=== PATIENT | male | born 1980 | race Two or more races ===

== ENCOUNTER 2016-07-15 21:13 | Emergency (ER) | payer MEDICAID ==
[~2016-07-15] VITALS: Ht 170.2 cm; Wt 74.8 kg
[2016-07-15] MEDS ORDERED: ONDANSETRON HCL 4 MG/2 ML VIAL ONE (21:31)
[2016-07-15] MEDS ORDERED: MORPHINE SULF INJ 2 MG/ML SYRINGE 1ML ONE (21:32)
[2016-07-15] MEDS ORDERED: SODIUM CHLORIDE 0.9% 1,000 ML IV ONE (21:45)
[2016-07-15] MEDS ORDERED: ONDANSETRON HCL 4 MG/2 ML VIAL IV ONE (21:45)
[2016-07-15] MEDS ORDERED: MORPHINE SULF INJ 2 MG/ML SYRINGE 1ML IV ONE (21:45)
[2016-07-15 21:47] LABS: Basophils # (auto) 0.2 uL; Eosinophils # (auto) 0 uL; Eosinophils % (auto) 0.2 % (0.0-7.0); Hematocrit 55.5 % (41.0-53.0); Hemoglobin 18.6 g/dL (13.5-17.5); Lymphocytes # (auto) 3.8 uL; Lymphocytes % (auto) 44.1 % (10.0-50.0); Mean Corpuscular Hemoglobin 31.3 pg (28.0-32.0); Mean Corpuscular Hgb Conc. 33.5 g/dL (32.0-36.0); Mean Corpuscular Volume 93.7 fL (80.0-100.0); Mean Platelet Volume 7.8 fL (7.4-10.4); Monocytes # (auto) 0.8 uL; Neutrophils # (auto) 3.8 uL; Neutrophils % (auto) 44.7 % (37.0-80.0); Platelet Count (auto) 343 10^3/uL (140-450); Red Cell Distribution Width 12.8 % (11.6-16.0); White Blood Cell 8.5 10^3/uL (4.4-10.8)
[2016-07-15 22:12] LABS: Albumin 4.3 g/dL (3.4-5.0); BUN/Creatinine Ratio 15.1; Calcium 9.2 mg/dL (8.5-10.1)
[2016-07-15 22:14] LABS: Bilirubin, Total 1.2 mg/dL (0.2-1.0); Total Protein 8.5 g/dL (6.4-8.2)
[2016-07-15 23:31] VITALS: BP 138/99
[2016-07-16] MEDS ORDERED: POTASSIUM CHL 20 Meq TABLET PO ONE (00:30)
== END 2016-07-16 01:15 | disposition home or self-care (01) ==
LOC: EDBD 21:13 → ER 21:13
DX: K29.70 Gastritis, unspecified, without bleeding (principal); E87.6 Hypokalemia; F17.210 Nicotine dependence, cigarettes, uncomplicated
CPT/HCPCS: 36415; 74176; 76705; 80053; 82150; 83690; 85025; 85049; 96361; 96374; 96375; 99285; J2270; J2405; J7030

== ENCOUNTER 2016-10-31 07:54 | Inpatient (IN) | payer MEDICAID ==
[~2016-10-31] VITALS: Ht 177.8 cm; Wt 79.4 kg
[2016-10-31 08:49] LABS: Basophils # (auto) 0.1 uL; Basophils % (auto) 0.7 % (0.0-2.0); Eosinophils # (auto) 0 uL; Eosinophils % (auto) 0.5 % (0.0-7.0); Hematocrit 55.4 % (41.0-53.0); Hemoglobin 18.9 g/dL (13.5-17.5); Lymphocytes # (auto) 1.6 uL; Lymphocytes % (auto) 21.1 % (10.0-50.0); Mean Corpuscular Hemoglobin 31.5 pg (28.0-32.0); Mean Corpuscular Hgb Conc. 34.2 g/dL (32.0-36.0); Mean Corpuscular Volume 92.3 fL (80.0-100.0); Mean Platelet Volume 7.5 fL (7.4-10.4); Monocytes # (auto) 0.9 uL; Monocytes % (auto) 11.1 % (0.0-12.0); Neutrophils # (auto) 5.2 uL; Neutrophils % (auto) 66.6 % (37.0-80.0); Platelet Count (auto) 376 10^3/uL (140-450); Red Cell Distribution Width 12.6 % (11.6-16.0); White Blood Cell 7.8 10^3/uL (4.4-10.8)
[2016-10-31] MEDS ORDERED: SODIUM CHLORIDE 0.9% 1,000 ML IV ONE (08:52)
[2016-10-31] MEDS ORDERED: ONDANSETRON HCL 4 MG/2 ML VIAL IV ONE (09:00)
[2016-10-31] MEDS ORDERED: KETOROLAC TROMETH 30 MG/ML 1ML VIAL IV ONE (09:00)
[2016-10-31 09:14] LABS: Albumin 4.3 g/dL (3.4-5.0); Bilirubin, Total 1.6 mg/dL (0.2-1.0); Calcium 9.6 mg/dL (8.5-10.1); Potassium 3.1 mmol/L (3.5-5.1); Total Protein 8.9 g/dL (6.4-8.2)
[2016-10-31 09:29] LABS: Amylase 63 U/L (25-115)
[2016-10-31] MEDS ORDERED: PIPERACILLIN-TAZOB 3.375GM 100 ML IV ONE (10:00)
[2016-10-31] MEDS ORDERED: metroNIDAZOLE 500MG/100ML 100 ML IV ONE (10:00)
[2016-10-31] MEDS ORDERED: cefTRIAXone 1GM/50ML D5W 50 ML IV ONE (10:15)
[2016-10-31] MEDS ORDERED: MORPHINE SULF INJ 2 MG/ML SYRINGE 1ML IV PRN (10:15)
[2016-10-31] MEDS ORDERED: LORazepam 0.5 MG TAB PO PRN (10:15)
[2016-10-31] MEDS ORDERED: NITROGLYCERIN 0.4 MG SL TAB SL PRN (10:15)
[2016-10-31] MEDS ORDERED: FAMOTIDINE (10MG/ML) 2ML VL IV SCH (10:15)
[2016-10-31] MEDS ORDERED: ACETAMINOPHEN 500 MG TAB PO PRN (10:15)
[2016-10-31] MEDS ORDERED: TEMAZEPAM 15 MG CAP PO PRN (10:15)
[2016-10-31] MEDS: SODIUM CHLORIDE 0.9% 1,000 ML IV SCH ×2 (10:48→21:34)
[2016-10-31] MEDS: metroNIDAZOLE 500MG/100ML 100 ML IV SCH ×3 (12:07→23:37)
[2016-10-31] MEDS: MORPHINE SULF INJ 2 MG/ML SYRINGE 1ML IV PRN ×2 (13:10→18:30)
[2016-10-31] MEDS ORDERED: PANTOPRAZOLE SODIUM 40 MG/10 ML VIAL IV ONE (14:30)
[2016-10-31 17:28] VITALS: BP 120/73
[2016-10-31 17:47] LABS: Hemoglobin 17.3 g/dL (13.5-17.5)
[2016-10-31 21:37] VITALS: BP 130/87
[2016-10-31] MEDS: PROMETHAZINE HCL 25 MG/ML 1ML IV PRN (21:40)
[2016-10-31] MEDS: HYDROcodone-ACET 5/325MG TAB PO PRN (21:57)
[2016-11-01 00:44] LABS: Hematocrit 47.6 % (41.0-53.0); Hemoglobin 16.2 g/dL (13.5-17.5)
[2016-11-01] MEDS: HYDROcodone-ACET 5/325MG TAB PO PRN ×2 (04:19→04:26)
[2016-11-01 04:42] VITALS: BP 118/64
[2016-11-01] MEDS: SODIUM CHLORIDE 0.9% 1,000 ML IV SCH ×2 (05:42→16:27)
[2016-11-01] MEDS: metroNIDAZOLE 500MG/100ML 100 ML IV SCH ×4 (05:42→23:46)
[2016-11-01 06:50] LABS: Hematocrit 47.1 % (41.0-53.0); Hemoglobin 16.1 g/dL (13.5-17.5)
[2016-11-01] MEDS: PANTOPRAZOLE SODIUM 40 MG/10 ML VIAL IV SCH (08:41)
[2016-11-01] MEDS: cefTRIAXone 1GM/50ML D5W 50 ML IV SCH (08:41)
[2016-11-01 09:00] VITALS: BP 109/75
[2016-11-01] MEDS ORDERED: GOLYTELY 4L KIT PO ONE (10:00)
[2016-11-01] MEDS: PROMETHAZINE HCL 25 MG/ML 1ML IV PRN (12:03)
[2016-11-01] MEDS ORDERED: POTASSIUM CHL 20MEQ/100ML 100 ML IV SCH (12:15)
[2016-11-01] MEDS: MORPHINE SULF INJ 2 MG/ML SYRINGE 1ML IV PRN ×2 (12:17→23:00)
[2016-11-01] MEDS ORDERED: POTASSIUM (KCL) 40 MEQ,LIDOCAINE 1% 4 ML in NS 250 ML IV ONE ×3 (12:30)
[2016-11-01 13:00] VITALS: BP 162/113
[2016-11-01 16:51] VITALS: BP 139/85
[2016-11-01 22:00] VITALS: BP 130/91
[2016-11-02] MEDS: SODIUM CHLORIDE 0.9% 1,000 ML IV SCH ×3 (02:37→21:32)
[2016-11-02] MEDS: metroNIDAZOLE 500MG/100ML 100 ML IV SCH ×4 (05:54→23:44)
[2016-11-02 05:57] VITALS: BP 145/84
[2016-11-02 07:08] LABS: INR 1.1 (0.9-1.15); Partial Thromboplastin Time 26.2 sec (22.64-33.71); Prothrombin Time 11.9 sec (9.37-12.3)
[2016-11-02 07:11] LABS: BUN/Creatinine Ratio 11.5; Basophils # (auto) 0.1 uL; Basophils % (auto) 0.6 % (0.0-2.0); Calcium 8.4 mg/dL (8.5-10.1); Eosinophils # (auto) 0.1 uL; Eosinophils % (auto) 0.8 % (0.0-7.0); Hematocrit 48.3 % (41.0-53.0); Hemoglobin 16.9 g/dL (13.5-17.5); Lymphocytes % (auto) 22.3 % (10.0-50.0); Mean Corpuscular Hemoglobin 32.5 pg (28.0-32.0); Mean Corpuscular Volume 92.9 fL (80.0-100.0); Mean Platelet Volume 7.9 fL (7.4-10.4); Monocytes # (auto) 0.8 uL; Monocytes % (auto) 8.5 % (0.0-12.0); Neutrophils # (auto) 6.2 uL; Neutrophils % (auto) 67.8 % (37.0-80.0); Platelet Count (auto) 312 10^3/uL (140-450); Potassium 3.3 mmol/L (3.5-5.1); Red Cell Distribution Width 12.5 % (11.6-16.0); White Blood Cell 9.1 10^3/uL (4.4-10.8)
[2016-11-02 08:16] VITALS: BP 138/83
[2016-11-02] MEDS: cefTRIAXone 1GM/50ML D5W 50 ML IV SCH (08:51)
[2016-11-02] MEDS: PANTOPRAZOLE SODIUM 40 MG/10 ML VIAL IV SCH (08:51)
[2016-11-02] MEDS ORDERED: GOLYTELY 4L KIT PO ONE (12:00)
[2016-11-02 12:29] VITALS: BP 142/101
[2016-11-02] MEDS ORDERED: POTASSIUM CHL 20 Meq TABLET PO ONE (14:30)
[2016-11-02] MEDS ORDERED: MORPHINE SULF INJ 2 MG/ML SYRINGE 1ML ONE (15:22)
[2016-11-02] MEDS ORDERED: PROMETHAZINE HCL 25 MG/ML 1ML ONE (15:23)
[2016-11-02] MEDS: MORPHINE SULF INJ 2 MG/ML SYRINGE 1ML IV PRN ×2 (15:39→21:00)
[2016-11-02 16:19] LABS: Urine Bilirubin Negative (Negative); Urine Blood Negative /uL (Negative); Urine Color Yellow (Yellow); Urine Glucose Normal (Normal); Urine Ketone Negative (Negative); Urine Nitrite Negative (Negative); Urine RBC <1 /hpf (0 - 3); Urine Urobilinogen Normal (Negative)
[2016-11-02 16:27] VITALS: BP 129/79
[2016-11-02] MEDS: PROMETHAZINE HCL 25 MG/ML 1ML IV PRN (19:40)
[2016-11-02 22:00] VITALS: BP 115/67
[2016-11-03 05:00] VITALS: BP 144/88
[2016-11-03] MEDS: metroNIDAZOLE 500MG/100ML 100 ML IV SCH (05:34)
[2016-11-03] MEDS: SODIUM CHLORIDE 0.9% 1,000 ML IV SCH (08:04)
[2016-11-03] MEDS ORDERED: LIDOCAINE VISCOUS 2% 15ML UD ONE (08:15)
[2016-11-03] MEDS ORDERED: SODIUM CHLORIDE LOCK 10 ML ONE (08:15)
[2016-11-03] MEDS ORDERED: diphenhdrAMINE HCL 50 MG/1 ML VL ONE (08:16)
[2016-11-03 08:37] VITALS: BP 112/73
[2016-11-03] MEDS: cefTRIAXone 1GM/50ML D5W 50 ML IV SCH (09:46)
[2016-11-03] MEDS: PANTOPRAZOLE SODIUM 40 MG/10 ML VIAL IV SCH (09:47)
[2016-11-03] MEDS: MORPHINE SULF INJ 2 MG/ML SYRINGE 1ML IV PRN (09:54)
[2016-11-03] MEDS: MIDAZOLAM HCL 5 MG/ML-1ML VIAL ONE ×5 (11:33→11:50)
[2016-11-03] MEDS: fentaNYL CITRATE 100 MCG/2 ML VL ONE ×5 (11:33→11:50)
[2016-11-03 12:35] VITALS: BP 119/90
[2016-11-03] MEDS ORDERED: IBUP800T24 PO (15:48)
[2016-11-03] MEDS ORDERED: PANT40T PO (15:48)
[2016-11-04] MEDS ORDERED: PANTOPRAZOLE 40 MG TAB PO SCH (10:00)
== END 2016-11-03 17:15 | disposition home or self-care (01) | DRG 249 ==
LOC: ER 07:54 → TELE 07:55 → TELE-E-ADS 13:51 → TELE-CENTR 16:55
PROVIDERS: ADMIT Internal Medicine; ATTEND Hospitalist
PROC: 0DB68ZX Excision of Stomach, Via Natural or Artificial Opening Endoscopic, Diagnostic (ICD-10-PCS; principal; 2016-11-03 11:30)
PROC: 0DBF8ZX Excision of Right Large Intestine, Via Natural or Artificial Opening Endoscopic, Diagnostic (ICD-10-PCS; 2016-11-03 11:30)
DX: A09 Infectious gastroenteritis and colitis, unspecified (principal); E87.6 Hypokalemia; K42.9 Umbilical hernia without obstruction or gangrene; F17.210 Nicotine dependence, cigarettes, uncomplicated; K29.70 Gastritis, unspecified, without bleeding; K64.8 Other hemorrhoids; Z82.49 Family history of ischemic heart disease and other diseases of the circulatory system; Z87.440 Personal history of urinary (tract) infections; Z83.3 Family history of diabetes mellitus; Z88.1 Allergy status to other antibiotic agents
CPT/HCPCS: 36415; 43239; 45380; 71010; 74176; 76705; 80048; 80053; 81001; 82150; 83605; 83690; 85014; 85018; 85025; 85045; 85610; 85652; 85730; 86141; 86677; 86850; 86900; 86901; 87040; 87045; 87493; 87899; 96361; 96365; 96375; C9113; J0696; J1885; J2001; J2250; J2405; J2543; J3490

== ENCOUNTER 2016-12-06 12:22 | Emergency (ER) | payer MEDICAID ==
[~2016-12-06] VITALS: Ht 172.7 cm; Wt 68.0 kg
[~2016-12-06 12:22] MED LIST: IBUP800T24 PO; PANT40T PO
[2016-12-06 12:35] VITALS: BP 149/90
== END 2016-12-06 18:36 | disposition left against medical advice (07) ==
LOC: EDUNIT# 12:22 → EDBD 12:22 → ER 12:22
DX: R10.9 Unspecified abdominal pain (principal); K52.9 Noninfective gastroenteritis and colitis, unspecified; Z53.21 Procedure and treatment not carried out due to patient leaving prior to being seen by health care provider

== ENCOUNTER 2017-06-24 11:41 | Emergency (ER) | payer MEDICAID ==
[~2017-06-24] VITALS: Ht 177.8 cm; Wt 78.9 kg
[~2017-06-24 11:41] MED LIST changes: +DOCU100C8 PO; -IBUP800T24 PO
[2017-06-24 11:54] VITALS: BP 142/108
[2017-06-24 13:45] LABS: Basophils # (auto) 0.1 uL; Eosinophils # (auto) 0 uL; Eosinophils % (auto) 0.2 % (0.0-7.0); Lymphocytes # (auto) 3.3 uL; Mean Corpuscular Hgb Conc. 36.4 g/dL (32.0-36.0); Neutrophils # (auto) 5.2 uL
[2017-06-24 13:47] LABS: Basophils % (auto) 0.6 % (0.0-2.0); Hemoglobin 19.3 g/dL (13.5-17.5); Lymphocytes % (auto) 34.3 % (10.0-50.0); Mean Corpuscular Hemoglobin 32.6 pg (28.0-32.0); Mean Corpuscular Volume 89.5 fL (80.0-100.0); Monocytes % (auto) 10.9 % (0.0-12.0); Nucleated Red Blood Cells % 0.5 %; Platelet Count (auto) 406 10^3/uL (140-450); Red Blood Cells 5.92 10^6/uL (4.5-5.90); Red Cell Distribution Width 12.7 % (11.8-14.3); White Blood Cell 9.5 10^3/uL (4.4-10.8)
[2017-06-24 14:12] LABS: Albumin 4.6 g/dL (3.4-5.0); Bilirubin, Total 1.6 mg/dL (0.2-1.0); Calcium 9.4 mg/dL (8.5-10.1); Potassium 3.2 mmol/L (3.5-5.1); Total Protein 8.9 g/dL (6.4-8.2)
== END 2017-06-24 19:10 | disposition left against medical advice (07) ==
LOC: ER 11:41 → EDSEX 11:41 → EDBD 11:41 → ER 19:10
DX: R10.11 Right upper quadrant pain (principal); Z53.21 Procedure and treatment not carried out due to patient leaving prior to being seen by health care provider
CPT/HCPCS: 36415; 80053; 85025

== ENCOUNTER 2017-09-21 10:07 | Emergency (ER) | payer MEDICAID ==
[~2017-09-21] VITALS: Ht 177.8 cm; Wt 54.4 kg
[2017-09-21 10:41] LABS: Basophils # (auto) 0.1 uL; Basophils % (auto) 0.6 % (0.0-2.0); Eosinophils # (auto) 0 uL; Hematocrit 48.7 % (41.0-53.0); Hemoglobin 17.2 g/dL (13.5-17.5); Lymphocytes # (auto) 1.4 uL; Lymphocytes % (auto) 14.5 % (10.0-50.0); Mean Corpuscular Hemoglobin 32.5 pg (28.0-32.0); Mean Corpuscular Hgb Conc. 35.3 g/dL (32.0-36.0); Mean Corpuscular Volume 92.1 fL (80.0-100.0); Monocytes # (auto) 0.6 uL; Monocytes % (auto) 6.5 % (0.0-12.0); Neutrophils # (auto) 7.5 uL; Neutrophils % (auto) 78.4 % (37.0-80.0); Nucleated Red Blood Cells % 0.2 %; Platelet Count (auto) 337 10^3/uL (140-450); Red Blood Cells 5.28 10^6/uL (4.5-5.90); Red Cell Distribution Width 12.6 % (11.8-14.3); White Blood Cell 9.5 10^3/uL (4.4-10.8)
[2017-09-21 11:02] LABS: Albumin 4.2 g/dL (3.4-5.0); BUN/Creatinine Ratio 24.5; Calcium 9.1 mg/dL (8.5-10.1); Potassium 3.2 mmol/L (3.5-5.1)
[2017-09-21 11:05] LABS: Bilirubin, Total 1.3 mg/dL (0.2-1.0); Total Protein 8.2 g/dL (6.4-8.2)
[2017-09-21 11:11] LABS: Urine Bacteria NONE SEEN /hpf (None Seen); Urine Blood Negative /uL (Negative); Urine Mucus FEW (None Seen); Urine Specific Gravity 1.039 (1.001-1.035); Urine WBC 3 /hpf (0 - 3)
[2017-09-21] MEDS ORDERED: POTASSIUM CHL 10% (20 MEQ/15ML) 15ml ORAL SOLN PO ONE (13:45)
[2017-09-21] MEDS ORDERED: PANTOPRAZOLE 40 MG/10 ML VIAL IV ONE (14:45)
[2017-09-21] MEDS ORDERED: PROMETHAZINE HCL 25 MG/ML 1ML IV ONE (14:45)
[2017-09-21] MEDS ORDERED: POTASSIUM CHL 20MEQ/100ML 100 ML IV ONE (14:45)
[2017-09-21 15:45] VITALS: BP 122/68
== END 2017-09-21 16:39 | disposition home or self-care (01) ==
LOC: EDBD 10:07 → ER 10:07
DX: E87.6 Hypokalemia (principal); E86.0 Dehydration; K70.9 Alcoholic liver disease, unspecified; K21.9 Gastro-esophageal reflux disease without esophagitis; F17.210 Nicotine dependence, cigarettes, uncomplicated; Z88.0 Allergy status to penicillin
CPT/HCPCS: 36415; 76705; 80053; 81001; 82150; 83690; 85025; 96365; 96366; 96375; 99285; C9113; J2550; J3480

== ENCOUNTER 2020-06-20 15:39 | Emergency (ER) | payer MEDICAID, OTHER ==
[~2020-06-20] VITALS: Ht 177.8 cm; Wt 78.9 kg
[~2020-06-20 15:39] MED LIST changes: -DOCU100C8 PO
[2020-06-20 16:25] LABS: Basophils # (auto) 0.1 10 ^3/uL (0-0.2); Eosinophils # (auto) 0 10 ^3/uL (0-0.8); Monocytes # (auto) 1.1 10 ^3/uL (0-1.3); Neutrophils # (auto) 5.9 10 ^3/uL (1.6-8.6); White Blood Cell 9.5 10^3/uL (4.4-10.8)
[2020-06-20 16:27] LABS: Basophils % (auto) 1.3 % (0.0-2.0); Eosinophils % (auto) 0.2 % (0.0-7.0); Hematocrit 52.7 % (41.0-53.0); Hemoglobin 19.1 g/dL (13.5-17.5); Lymphocytes # (auto) 2.3 10 ^3/uL (0.4-5.4); Lymphocytes % (auto) 24.5 % (10.0-50.0); Mean Corpuscular Hemoglobin 31.9 pg (28.0-32.0); Mean Corpuscular Hgb Conc. 36.2 g/dL (32.0-36.0); Mean Corpuscular Volume 88.2 fL (80.0-100.0); Monocytes % (auto) 11.3 % (0.0-12.0); Neutrophils % (auto) 62.7 % (37.0-80.0); Nucleated Red Blood Cells % 0.1 %; Platelet Count (auto) 354 10^3/uL (140-450); Red Blood Cells 5.98 10^6/uL (4.5-5.90); Red Cell Distribution Width 12.7 % (11.8-14.3)
[2020-06-20 16:45] LABS: Calcium 9.2 mg/dL (8.5-10.1); Potassium 3.3 mmol/L (3.5-5.1)
[2020-06-20 16:51] LABS: Albumin 4.5 g/dL (3.4-5.0); Bilirubin, Total 1.9 mg/dL (0.2-1.0); Total Protein 8.9 g/dL (6.4-8.2)
[2020-06-20 20:35] LABS: Urine Bacteria NONE SEEN /hpf (None Seen); Urine Blood Negative /uL (Negative); Urine Specific Gravity 1.034 (1.001-1.035); Urine WBC 1 /hpf (0 - 3)
[2020-06-20 20:53] LABS: Amphetamine Screen, Urine NEGATIVE (NEGATIVE); Barbiturate Scree,Urine NEGATIVE (NEGATIVE); Benzodiazephine Screen, Urine NEGATIVE (NEGATIVE); Cannabinoid Screen, Urine POSITIVE (NEGATIVE); Cocaine Screen, Urine NEGATIVE (NEGATIVE); Opiate Scree,Urine NEGATIVE (NEGATIVE); Phencyclidine Screen, Urine NEGATIVE (NEGATIVE)
[2020-06-21] MEDS ORDERED: SODIUM CHLORIDE 0.9% 1,000 ML IV ONE (00:15)
[2020-06-21] MEDS ORDERED: PANTOPRAZOLE 40 MG/10 ML VIAL INJ IV ONE (00:15)
[2020-06-21] MEDS ORDERED: MORPHINE SULFATE 4 MG/ML SYR/VIAL IV ONE (00:15)
[2020-06-21] MEDS ORDERED: ONDANSETRON ODT 4 MG TAB PO ONE (00:15)
[2020-06-21] MEDS ORDERED: POTASSIUM CHL 20 Meq TABLET PO ONE (01:15)
[2020-06-21 02:29] VITALS: BP 124/74
== END 2020-06-21 02:36 | disposition home or self-care (01) ==
LOC: ER 15:39
DX: K29.70 Gastritis, unspecified, without bleeding (principal); E86.0 Dehydration; F12.10 Cannabis abuse, uncomplicated; E87.6 Hypokalemia; D58.2 Other hemoglobinopathies
CPT/HCPCS: 36415; 74176; 80053; 80307; 81001; 82150; 83690; 85025; 96361; 96374; 96375; 99284; C9113; J2270; Q0162

== ENCOUNTER 2025-06-04 11:58 | Emergency (ER) | payer OTHER ==
[~2025-06-04] VITALS: Ht 177.8 cm; Wt 86.7 kg
[2025-06-04 12:49] VITALS: BP 123/84; PULSE 72; RESP 16; TEMP 97.5; O2SAT 96
--- NOTE | 2025-06-04 13:40 | ED.PDOC ---
History of Present Illness HPI Comments 45-year-old male presents to the ER with a chief complaint of laceration. Patient reports that he was opening a crown cap off of a alcohol bottle with a spoon when the bottle slipped out of his hand causing him to leave a 1cm U shaped lack to the 1st left distal metacarpal region of the hand at 10:30 a.m. t his morning. Denies any other symptoms at this time. Denies chills, fever, N/V/D, SOB, CP. No other associated symptoms, modifiers, recent injuries or sick contacts present at this time. Chief Complaint: Laceration Time Seen by MD: 13:00 Primary Care Provider: SERINA Reviewed Notes: Nurses Notes, Medications, Allergies Allergies: Coded Allergies: Amoxicillin (Verified Allergy, Unknown, 10/31/16) Home Meds Active Scripts Pantoprazole Sodium Sesquihydr (Pantoprazole Sodium) 40 Mg Tab, 40 MG PO BID, #60 TAB Prov:RENETTA DEL VALLE MD 01/08/18 Information Source: Patient Mode of Arrival: Ambulatory Severity: Moderate Timing: Hours Duration: Since onset, Hours Prehospital treatment: None Past Medical History PAST MEDICAL HISTORY: GERD, UTI'S Surgical History: Denies all surgeries Family History Family History: Reviewed,noncontributory to illness, Unknown Social History Smoker: Other Alcohol: Sober Drugs: Marijuana Lives In: Home Constitutional: denies: chills, diaphoresis, fatigue, fever, malaise, sweats, weakness, others EENTM: denies: blurred vision, double vision, ear bleeding, ear discharge, ear drainage, ear pain, ear ringing, eye pain, eye redness, hearing loss, mouth pain, mouth swelling, nasal discharge, nose bleeding, nose congestion, nose pain, photophobia, tearing, throat pain, throat swelling, voice changes, others Respiratory: denies: cough, hemoptysis, orthopnea, SOB at rest, shortness of breath, SOB with excertion, stridor, wheezing, others Cardiovascular: denies: chest pain, dizzy spells, diaphoresis, Dyspnea on exertion, edema, irregular heart beat, left arm pain, lightheadedness, p alpitations, PND, syncope, others Gastrointestinal: denies: abdomen distended, abdominal pain, blood streaked bowels, constipated, diarrhea, dysphagia, difficulty swallowing, hematemesis, melena, nausea, poor appetite, poor fluid intake, rectal bleeding, rectal pain, vomiting, others Genitourinary: denies: burning, dysuria, flank pain, frequency, hematuria, incontinence, penile discharge, penile sore, pain, testicle pain, testicle swelling, urgency, others Neurological: denies: dizziness, fainting, headache, left sided numbness, left sided weakness, numbness, paresthesia, pre-existing deficit, right sided numbness, right sided weakness, seizure, speech problems, tingling, tremors, weakness, others Musculoskeletal: denies: back pain, gout, joint pain, joint swelling, muscle pain, muscle stiffness, neck pain, others Integumetry: reports: laceration (1cm U shaped lack to the 1st left distal metacarpal region of the hand); denies: bruises, change in color, change in hair/nails, dryness, lesions, lumps, rash, wounds, others Allergic/Immunocompromised: denies: Difficulty Healing, Frequent Infections, Hives, Itching, others Hematologic/Lymphatic: denies: anemia, blood clots, easy bleeding, easy bruising, swollen glands, others Endocrine: denies: excessive hunger, excessive sweating, excessive thirst, excessive urination, flushing, intolerance to cold, intolerance to heat, unexplained weight gain, unexplained weight loss, others Psychiatric: denies: anxiety, bipolar disorder, depression, hopeless, panic disorder, schizophrenia, sleepless, suicidal, others All Other Systems: Reviewed and Negative Physical Exam Exam Comments 1cm U shaped lac to the 1st left distal metacarpal region of the hand General Appearance: No Apparent Distress, Normal HEENT: Normal ENT Inspection, Pharynx Normal, TMs Normal Neck: Full Range of Motion, Non-Tender, Normal, Normal Inspection Respiratory: Chest Non-Tender, Lungs Clear, No Accessory Muscle Use, No Respiratory Distress, Normal Breath Sounds Cardiovascular: No Edema, No JVD, No Murmur, No Gallop, Normal Peripheral Pulses, Regular Rate/Rhythm Breast Exam: Deferred Gastrointestinal: No Organomegaly, Non Tender, No Pulsatile Mass, Normal Bowel Sounds, Soft Genitalia: Deferred Pelvic: Deferred Rectal: Deferred Extremities: No calf tenderness, Normal capillary refill, Normal inspection, Normal range of motion, Non-tender, No pedal edema Musculoskeletal : Apperance: Normal Neurologic: Alert, film inspector II-XII nml as Tested, No Motor Deficits, Normal Affect, Normal Mood, No Sensory Deficits Cerebellar Function: Normal Reflexes: Normal Skin: Dry, Normal Color, Warm Lymphatic: No Adenopathy Was a procedure done? Was a procedure done?: Yes Sedation Sedation?: No Laceration Repair : Location Left thumb Length 2 cm Anesthetic: Lidocaine, Without epi Laceration Repair Prep: Saline, Betadine Laceration Repair Wound Comple: epidermis/dermis repair Laceration Repair: Number of sutures (Six), Prolene, Simple Informed consent obtained: Yes Risks, benefits, and alternati: Yes Differential Dx Considerations may include: Laceration X-Ray, Labs, Meds, VS Vital Signs Date Time Temp Pulse Resp B/P (MAP) Pulse Ox O2 Delivery O2 Flow Rate FiO2 06/04/25 12:49 72 16 96 Room Air 06/04/25 12:49 97.5 72 16 123/84 (97) 96 97.5 06/04/25 12:02 97.5 72 16 123/84 96 97.5 Time of 1ST Reevaluation: 13:30 Reevaluation 1ST: Unchanged Patient Education/Counseling: Diagnosis, Treatment, Prognosis Family Education/Counseling: No Family Present SEPSIS Sepsis Screen Date sepsis recognized/suspect: Jun 04, 2025 Time Sepsis recognized/suspect: 1204 Recent Procedure: No On Antibiotic Therapy: No Respiratory Rate >20: No Heart Rate >90: No Temp<36 C (96.8 F) or >38.3 C: No SBP <90 or MAP <65 mmHG: No New Acute Mental Status Change: No Is the patient on CPAP, BIPAP,: No Vital Signs Date Time Temp Pulse Resp B/P (MAP) Pulse Ox O2 Delivery O2 Flow Rate FiO2 06/04/25 12:49 72 16 96 Room Air 06/04/25 12:49 97.5 72 16 123/84 (97) 96 97.5 06/04/25 12:02 97.5 72 16 123/84 96 97.5 Departure 1 Departure Time of Disposition: 17:51 (Patient has a tetanus shot received and laceration. . We will discharge patient home with outpatient follow up) Impression: Primary Impression: Thumb laceration Disposition: 01 HOME / SELF CARE / HOMELESS Condition: Stable Additional Instructions: You had your laceration repaired in the ER today. You had 6 stitches placed today. You should follow up with your regular doctor or return here in 10 days for suture removal. In order to allow for the best healing, you should do the following. 1. Wash the area with gentle soap such as Dove brand and water. 2. Cover the laceration with bacitracin 3. Bandage the laceration and keep them covered. You should do the above twice per day. For pain you can take the followinam: Ibuprofen 400mg with food Noon: Acetaminophen 1000mg 4pm: Ibuprofen 400mg with food 8pm: Acetaminophen 1000mg If your symptoms worsen or you have any other concerns then please return to the ER. Critical Care Note Critical Care Time?: No Stability Stability form required: No I personally scribed for EUN BANEGAS MD ([email or web address]) on 06/04/25 at 13:40. Electronically submitted by Slim Zamorano ([email or web address]). EUN BANEGAS MD Jun 04, 2025 13:40
== END 2025-06-04 18:29 | disposition left against medical advice (07) ==
LOC: ER 11:58
DX: S61.019A Laceration without foreign body of unspecified thumb without damage to nail, initial encounter (principal); F17.200 Nicotine dependence, unspecified, uncomplicated; Z88.0 Allergy status to penicillin; Z79.899 Other long term (current) drug therapy; W25.XXXA Contact with sharp glass, initial encounter; Y93.89 Activity, other specified; Y92.89 Other specified places as the place of occurrence of the external cause; Y99.8 Other external cause status
CPT/HCPCS: 12001; 99282; A4649; 12002